=== PATIENT | female | born 1995 | race Two or more races ===

== ENCOUNTER 2018-01-25 09:52 | Emergency (ER) | payer SELFPAY ==
[2018-01-25 11:03] LABS: BILIRUBIN,URINE NEGATIVE (NEG); CLARITY,URINE CLOUDY; COLOR,URINE YELLOW; GLUCOSE,URINE NEGATIVE (NEG); NITRITE,URINE NEGATIVE (NEG); PH,URINE 6.5; PROTEIN,URINE NEGATIVE (NEG-TRACE)
[2018-01-25 11:10] LABS: BACTERIA,URINE FEW /HPF (0-FEW); RBC,URINE RARE /HPF (0-2); SQUAMOUS EPITHELIAL CELL,UR MANY /LPF
[2018-01-25 12:31] LABS: ADD MAN DIFF? NO
[2018-01-25 12:33] LABS: BASO % 1 % (0-3); EOS # 0.1 x10^3/uL (0.0-0.7); EOS % 1 % (0-3); HEMATOCRIT 37.5 % (36.0-47.0); HEMOGLOBIN 12.6 g/dL (12.0-15.5); LYMPH # 2.5 x10^3/uL (1.0-4.8); LYMPH % 25 % (24-48); MEAN CORPUSCULAR HEMOGLOBIN 29 pg (25-35); MEAN CORPUSCULAR HGB CONC 34 g/dL (31-37); MEAN CORPUSCULAR VOLUME 85 fL (79-100); MONO # 0.6 x10^3/uL (0.0-1.1); MONO % 6 % (0-9); NEUT # 6.6 x10^3uL (1.8-7.7); NEUT % 67 % (31-73); PLATELET COUNT 248 x10^3/uL (140-400); RED BLOOD COUNT 4.39 x10^6/uL (3.50-5.40); RED CELL DISTRIBUTION WIDTH 16.2 % (11.5-14.5); WHITE BLOOD COUNT 9.8 x10^3/uL (4.0-11.0)
[2018-01-25 12:54] LABS: ANION GAP 6 (6-14); BLOOD UREA NITROGEN 9 mg/dL (7-20); BUN/CREATININE RATIO 18 (6-20); CALCIUM 8.7 mg/dL (8.5-10.1); CARBON DIOXIDE 26 mmol/L (21-32); CHLORIDE 105 mmol/L (98-107); CREATININE 0.5 mg/dL (0.6-1.0); GFR 152.9; GLUCOSE 86 mg/dL (70-99); SODIUM 137 mmol/L (136-145)
[2018-01-25 12:57] LABS: INFLUENZA A PATIENT NEGATIVE (NEGATIVE); INFLUENZA B PATIENT NEGATIVE (NEGATIVE); OBC FLU VALID
[2018-01-25 13:04] LABS: ALBUMIN/GLOBULIN RATIO 0.8 (1.0-1.7); ALK PHOS 60 U/L (46-116); ALT (SGPT) 24 U/L (14-59); AST (SGOT) 15 U/L (15-37); LIPASE 112 U/L (73-393); TOTAL BILIRUBIN 0.5 mg/dL (0.2-1.0)
[2018-01-26 06:44] LABS: NEGATIVE OBC STREP NEG; POSITIVE OBC STREP POS
[2018-01-26 14:23] LABS: CHLAMYDIA PROBE Negative (Negative); GC PROBE Negative (Negative)
== END 2018-01-25 13:04 | disposition home or self-care (01) ==
LOC: ER 09:52
DX: O99.512 Diseases of the respiratory system complicating pregnancy, second trimester (principal); J06.9 Acute upper respiratory infection, unspecified; O23.42 Unspecified infection of urinary tract in pregnancy, second trimester; N76.0 Acute vaginitis; B96.89 Other specified bacterial agents as the cause of diseases classified elsewhere; Z3A.20 20 weeks gestation of pregnancy
CPT/HCPCS: 36415; 76805; 80053; 81001; 83690; 84702; 85025; 87070; 87086; 87491; 87591; 87804; 87804-59; 87880; 99285-25; Q0111

== ENCOUNTER 2018-06-28 23:00 | Inpatient (IN) | payer SELFPAY ==
[~2018-06-28] VITALS: Ht 154.9 cm; Wt 72.6 kg
[~2018-06-28 23:00] MED LIST: ACET-704 PO; CEPH500T PO; IBUP-1060 PO; METR500T PO
[2018-06-29 02:22] VITALS: BP 105/62
[2018-06-29] MEDS ORDERED: IBUPROFEN 800 MG TABLET. PO PRN (02:30)
[2018-06-29] MEDS ORDERED: OXYTOCIN 30 UNIT/500 ML PREMIX 500 ML IV PRN ×3 (02:30→17:15)
[2018-06-29] MEDS ORDERED: PENICILLIN G K 5,000,000 UNIT in IV DEXTROSE 5% 100ML 100 ML IV ONE (02:30)
[2018-06-29] MEDS ORDERED: 0.9 % SODIUM CHLORIDE 10 ML DISP.SYRIN. IV PRN ×2 (02:30→17:15)
[2018-06-29] MEDS ORDERED: LIDOCAINE 1% PF 30 ML VIAL. INJ PRN (02:30)
[2018-06-29] MEDS ORDERED: TERBUTALINE 1 MG/ML VIAL. SQ PRN (02:30)
[2018-06-29] MEDS ORDERED: ACETAMINOPHEN 325 MG TABLET. PO PRN ×2 (02:30→17:15)
[2018-06-29] MEDS ORDERED: ONDANSETRON PF 4 MG/2 ML VIAL. IV PRN (02:30)
[2018-06-29] MEDS ORDERED: MAG HYDROX/ALUMINUM HYD/SIMETH 30 ML ORAL.SUSP PO PRN ×2 (02:30→17:15)
[2018-06-29] MEDS ORDERED: fentaNYL PF VIAL 100 MCG/2 ML VIAL IV PRN (02:30)
[2018-06-29] MEDS: IV RINGERS,LACTATED 1000ML 1,000 ML IV SCH ×3 (04:34→18:16)
[2018-06-29 05:00] LABS: BASO % 0 % (0-3); EOS # 0.1 x10^3/uL (0.0-0.7); EOS % 1 % (0-3); HEMATOCRIT 34.5 % (36.0-47.0); HEMOGLOBIN 11.7 g/dL (12.0-15.5); LYMPH # 3.8 x10^3/uL (1.0-4.8); LYMPH % 39 % (24-48); MEAN CORPUSCULAR HEMOGLOBIN 29 pg (25-35); MEAN CORPUSCULAR HGB CONC 34 g/dL (31-37); MEAN CORPUSCULAR VOLUME 85 fL (79-100); MONO # 0.6 x10^3/uL (0.0-1.1); MONO % 7 % (0-9); NEUT # 5.1 x10^3uL (1.8-7.7); NEUT % 53 % (31-73); PLATELET COUNT 210 x10^3/uL (140-400); RED BLOOD COUNT 4.08 x10^6/uL (3.50-5.40); RED CELL DISTRIBUTION WIDTH 14.8 % (11.5-14.5); WHITE BLOOD COUNT 9.7 x10^3/uL (4.0-11.0)
[2018-06-29 05:31] LABS: % EOS 1 % (0-5); % LYMPHS 42 % (24-48); % MONOS 2 % (0-10); % SEGS 55 % (35-66); PLT ESTIMATE ADEQUATE (ADEQUATE)
[2018-06-29 07:26] VITALS: BP 79/46
--- NOTE | 2018-06-29 08:22 | PDOC1 ---
OB - History Hx of Present Care: Good Care Ultrasounds: Normal mid trimester US Obstetrical Complications: None Medical Complications: None Past Family/Social History * Past Medical, Surgical, Family and Obstetric Histories reviewed from chart. Rubella: Immune RPR/VDRL: Negative GBS Status: Positive HBsAG: Negative OB - Chief Complaint & HPI Date of Admission: Date of Admission: Jun 28, 2018 at 23:00 Chief Complaint/History : 3 Para: 2 EGA: 40 Reason for admission: active labor Admission Nurse Assessment Rev: Yes OB - Admission Exam Physical Exam Vitals: VS - Last 72 Hours, by Label Date Time Temp Pulse Resp B/P (MAP) Pulse Ox O2 Delivery O2 Flow Rate FiO2 06/29/18 07:26 98.9 59 16 79/46 (57) Room Air 98.9 06/29/18 02:22 98.2 71 18 105/62 (76) Room Air 98.2 HEENT: Normal Heart: Regular Rate Lungs: Clear, Equal Abdomen: Gravid, Non tender, Soft Extremities: Edema Reflexes: Normal Cervical Dilatation: 1cm Effacement: 75% Station: -3 Membranes: Intact Heart Rate: Normal Accelerations: Accelerations Present Decelerations: No decelerations Continuous 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 Start Pen G prophylaxis. WALTER AGUIAR Jr, MD Jun 29, 2018 08:22
[2018-06-29] MEDS: PENICILLIN G K 2,500,000 UNIT in IV DEXTROSE 5% 50 ML IV SCH ×2 (08:39→12:21)
[2018-06-29] MEDS: BUTORPHANOL 2 MG/ML VIAL. IV PRN ×2 (14:44→17:00)
[2018-06-29] MEDS ORDERED: METHYLERGONOVINE MALEATE 0.2 MG/ML VIAL. IM ONE (16:15)
[2018-06-29] MEDS ORDERED: miSOPROStol 200MCG TAB 200 MCG TABLET PR ONE (16:15)
[2018-06-29] MEDS ORDERED: CARBOPROST TROMETHAMINE 250 MCG/ML AMPUL IM ONE (16:15)
--- NOTE | 2018-06-29 17:04 | PDOC ---
VAGINAL DELIVERY DATE DATE: 06/29/18 TIME: 17:02 : 3 Para: 2 EGA: 40 VAGINAL DELIVERY: VTX VACCUM ASSISTED: No PLACENTA: Spontaneous 8/9 SEX: Male WEIGHT Weight [ 6 lbs. 11 oz] Nuchal Cord: No Amniotic Fluid: Clear PAIN: Natural EPISIOTOMY: No EXTENSION: No EBL 400 ml COMPLICATIONS retained placental products CONDITION stable Signs of Intrauterine Infectio: None Shoulder Dystocia: No WALTER AGUIAR Jr, MD Jun 29, 2018 17:04
[2018-06-29] MEDS ORDERED: ZOLPIDEM 5 MG TABLET. PO PRN (17:15)
[2018-06-29] MEDS ORDERED: MMR per PROTOCOL. MC PRN (17:15)
[2018-06-29] MEDS ORDERED: DOCUSATE SODIUM 100 MG CAPSULE. PO PRN (17:15)
[2018-06-29] MEDS ORDERED: SIMETHICONE 80 MG TAB.CHEW PO PRN (17:15)
[2018-06-29] MEDS ORDERED: PHENYLEPH/MINERAL OIL/PETROLAT RECTAL OINTMENT 28GM TUBE. RC PRN (17:15)
[2018-06-29] MEDS ORDERED: HYDROCORTISONE 1% TOPICAL OINTMENT 30GM TUBE. TP PRN (17:15)
[2018-06-29] MEDS ORDERED: MAGNESIUM HYDROXIDE 2,400 MG/30 ML ORAL.SUSP. PO PRN (17:15)
[2018-06-29] MEDS ORDERED: BENZOCAINE 20% TOPICAL AEROSOL SPRAY 57GM CAN. TP PRN (17:15)
[2018-06-29] MEDS ORDERED: diphenhydrAMINE HCL 25 MG CAPSULE PO PRN (17:15)
[2018-06-29] MEDS: AMPICILLIN/SULBACTAM 1.5 GM in IV NORMAL SALINE 50ML 50 ML IV SCH (18:19)
[2018-06-29] MEDS: IBUPROFEN 800 MG TABLET. PO PRN (19:30)
[2018-06-29 20:15] VITALS: BP 84/56
[2018-06-29 21:11] VITALS: BP 89/55
[2018-06-29] MEDS: oxyCODONE/APAP 5/325 1 TAB TABLET PO PRN (22:17)
[2018-06-30] MEDS: AMPICILLIN/SULBACTAM 1.5 GM in IV NORMAL SALINE 50ML 50 ML IV SCH ×3 (00:36→11:53)
[2018-06-30 00:53] VITALS: BP 84/53
[2018-06-30] MEDS: IV RINGERS,LACTATED 1000ML 1,000 ML IV SCH ×3 (02:16→18:16)
[2018-06-30 05:50] VITALS: BP 92/56
[2018-06-30] MEDS: IBUPROFEN 800 MG TABLET. PO PRN ×2 (06:20→19:56)
[2018-06-30] MEDS: FERROUS SULFATE 325 MG TABLET. PO SCH ×2 (07:55→09:54)
--- NOTE | 2018-06-30 08:12 | PDOC ---
OB Progress Note Date of Service 06/30/18 Time of Evaluation 0810 Notes Pt. feeling well. No complaints. Lab Laboratory Tests Test 06/29/18 04:47 White Blood Count 9.7 x10^3/uL (4.0-11.0) Red Blood Count 4.08 x10^6/uL (3.50-5.40) Hemoglobin 11.7 g/dL (12.0-15.5) Hematocrit 34.5 % (36.0-47.0) Mean Corpuscular Volume 85 fL (79-100) Mean Corpuscular Hemoglobin 29 pg (25-35) Mean Corpuscular Hemoglobin Concent 34 g/dL (31-37) Red Cell Distribution Width 14.8 % (11.5-14.5) Platelet Count 210 x10^3/uL (140-400) Neutrophils (%) (Auto) 53 % (31-73) Lymphocytes (%) (Auto) 39 % (24-48) Monocytes (%) (Auto) 7 % (0-9) Eosinophils (%) (Auto) 1 % (0-3) Basophils (%) (Auto) 0 % (0-3) Neutrophils # (Auto) 5.1 x10^3uL (1.8-7.7) Lymphocytes # (Auto) 3.8 x10^3/uL (1.0-4.8) Monocytes # (Auto) 0.6 x10^3/uL (0.0-1.1) Eosinophils # (Auto) 0.1 x10^3/uL (0.0-0.7) Basophils # (Auto) 0.0 x10^3/uL (0.0-0.2) Segmented Neutrophils % 55 % (35-66) Lymphocytes % 42 % (24-48) Monocytes % 2 % (0-10) Eosinophils % 1 % (0-5) Platelet Estimate Adequate (ADEQUATE) Treponema pallidum Antibody Nonreactive (Nonreactive) Medications Current Medications Sodium Chloride (Normal Saline Flush) 3 ml QSHIFT PRN IV AFTER MEDS AND BLOOD DRAWS; Start 06/29/18 at 02:30 Ringer's Solution 1,000 ml @ 125 mls/hr Q8H IV Last administered on 06/29/18at 11:50; Start 06/29/18 at 02:16 Butorphanol Tartrate (Stadol) 2 mg PRN Q1HR PRN IV Severe labor pain Last administered on 06/29/18at 17:00; Start 06/29/18 at 02:30 Fentanyl Citrate (Fentanyl 2ml Vial) 100 mcg PRN Q20MIN PRN IV Labor pain; Start 06/29/18 at 02:30 Acetaminophen (Tylenol) 650 mg PRN Q6HRS PRN PO MILD PAIN / TEMP; Start at 02:30 Ondansetron HCl (Zofran) 4 mg PRN Q4HRS PRN IV NAUSEA/VOMITING; Start 06/29/18 at 02:30 Al Hydroxide/Mg Hydroxide (Mylanta Plus Xs) 30 ml PRN Q4HRS PRN PO HEARTBURN / GAS; Start 06/29/18 at 02:30 Terbutaline Sulfate (Brethine) 0.25 mg 1X PRN PRN SQ SEE COMMENTS; Start at 02:30; Stop 06/30/18 at 02:29; Status DC Lidocaine HCl (Xylocaine 1% Pf 30ml Vial) 30 ml 1X PRN PRN INJ SEE COMMENTS; Start 06/29/18 at 02:30; Stop 07/01/18 at 02:29 Oxytocin/Sodium Chloride 500 ml @ 0 mls/hr CONT PRN IV SEE I/O RECORD Last administered on 06/29/18at 08:47; Start 06/29/18 at 02:30 Oxytocin/Sodium Chloride 500 ml @ 0 mls/hr CONT PRN PRN IV Post delivery bleeding; Start 06/29/18 at 02:30 Ibuprofen (Motrin) 800 mg PRN Q6HRS PRN PO MODERATE PAIN; Start 06/29/18 at 02: 30; Stop 06/29/18 at 17:32; Status DC Penicillin G Potassium [id number] unit/Dextrose 100 ml @ 100 mls/hr 1X ONCE IV Last administered on 06/29/18at 04:35; Start 06/29/18 at 02:30; Stop 06/29/18 at 03:29; Status DC Penicillin G Potassium [id number] unit/Dextrose 50 ml @ 100 mls/hr Q4H IV Last administered on 06/29/18at 12:21; Start 06/29/18 at 06:30; Stop 06/29/18 at 17:17 ; Status DC Misoprostol (Cytotec 200mcg Tab) 800 mcg 1X ONCE DC Last administered on at 16:59; Start 06/29/18 at 16:15; Stop 06/29/18 at 16:16; Status DC Methylergonovine Maleate (Methergine) 0.2 mg 1X ONCE IM ; Start 06/29/18 at 16: 15; Stop 06/29/18 at 16:16; Status DC Carboprost Tromethamine (Hemabate) 250 mcg 1X ONCE IM ; Start 06/29/18 at 16:15 ; Stop 06/29/18 at 16:16; Status DC Sodium Chloride (Normal Saline Flush) 10 ml QSHIFT PRN IV AFTER MEDS AND BLOOD DRAWS; Start 06/29/18 at 17:15 Oxytocin/Sodium Chloride 500 ml @ 62.5 mls/hr CONT PRN IV SEE I/O RECORD; Start 06/29/18 at 17:15; Stop 06/30/18 at 01:14; Status DC Acetaminophen (Tylenol) 650 mg PRN Q6HRS PRN PO MILD PAIN / TEMP; Start at 17:15 Ibuprofen (Motrin) 800 mg PRN Q8HRS PRN PO INFLAMMATION/PAIN PREVENTION Last administered on 06/30/18at 06:20; Start 06/29/18 at 17:15 Docusate Sodium (Colace) 100 mg PRN BID PRN PO CONSTIPATION SEE COMMENTS; Start 06/29/18 at 17:15 Magnesium Hydroxide (Milk Of Magnesia) 2,400 mg PRN DAILY PRN PO CONSTIPATION 2ND CHOICE; Start 06/29/18 at 17:15 Al Hydroxide/Mg Hydroxide (Mylanta Plus Xs) 30 ml PRN Q4HRS PRN PO HEARTBURN / GAS; Start 06/29/18 at 17:15 Simethicone (Gas-X) 80 mg PRN AFTMEALHC PRN PO GAS / BLOATING; Start 06/29/18 at 17:15 Diphenhydramine HCl (Benadryl) 25 mg PRN Q6HRS PRN PO ITCHING; Start 06/29/18 at 17:15 Benzocaine (Americaine) 1 spray PRN QID PRN TP TOPICAL PAIN; Start 06/29/18 at 17:15 Phenyleph/Shark Oil/Min Oil/Petrol (Preparation H) 1 john PRN QID PRN RC RECTAL PAIN; Start 06/29/18 at 17:15 Hydrocortisone (Cortaid) 1 john PRN QID PRN TP PERINEAL PAIN; Start 06/29/18 at 17:15 Ferrous Sulfate (Feosol) 325 mg BIDWMEALS PO ; Start 06/30/18 at 08:00 Zolpidem Tartrate (Ambien) 5 mg PRN QHS PRN PO INSOMNIA, MAY REPEAT X1; Start 06/29/18 at 17:15 Info (Do NOT chart on this placeholder) 1 ea 1X PRN PRN MC SEE COMMENTS; Start 06/29/18 at 17:15 Info (Do NOT chart on this placeholder) 1 ea 1X PRN PRN MC SEE COMMENTS; Start 06/29/18 at 17:15 Oxycodone/ Acetaminophen (Percocet 5/325) 2 tab PRN Q4HRS PRN PO MODERATE PAIN , SEVERE PAIN Last administered on 06/29/18at 22:17; Start 06/29/18 at 17:15 Ampicillin Sodium/ Sulbactam Sodium 1.5 gm/Sodium Chloride 50 ml @ 100 mls/hr Q6HRS IV Last administered on 06/30/18at 06:14; Start 06/29/18 at 18:00 Active Scripts Active Cephalexin 500 Mg Tablet 1 Tab PO BID Flagyl (Metronidazole) 500 Mg Tablet 1 Tab PO BID Tylenol With Codeine #3 Tablet (Acetaminophen/Codeine Phosphate) 1 Each Tablet 1 Each PO Q4H PRN Ibuprofen 800 Mg Tablet 800 Mg PO Q6H PRN Exam Abd: soft, non tender, fundus firm Assessment PPD#1 s/p Plan of Care: Continue current Tx, Mgmt WALTER AGUIAR Jr, MD Jun 30, 2018 08:12
[2018-06-30 08:16] LABS: BASO % 0 % (0-3); EOS # 0.1 x10^3/uL (0.0-0.7); EOS % 1 % (0-3); HEMATOCRIT 34.6 % (36.0-47.0); HEMOGLOBIN 11.7 g/dL (12.0-15.5); LYMPH # 3.7 x10^3/uL (1.0-4.8); LYMPH % 25 % (24-48); MEAN CORPUSCULAR HEMOGLOBIN 29 pg (25-35); MEAN CORPUSCULAR HGB CONC 34 g/dL (31-37); MEAN CORPUSCULAR VOLUME 85 fL (79-100); MONO % 7 % (0-9); NEUT # 10.1 x10^3uL (1.8-7.7); NEUT % 68 % (31-73); PLATELET COUNT 201 x10^3/uL (140-400); RED BLOOD COUNT 4.09 x10^6/uL (3.50-5.40); RED CELL DISTRIBUTION WIDTH 15.2 % (11.5-14.5); WHITE BLOOD COUNT 14.9 x10^3/uL (4.0-11.0)
[2018-06-30 09:58] VITALS: BP 80/50
[2018-06-30 11:07] VITALS: BP 85/60
[2018-06-30] MEDS: oxyCODONE/APAP 5/325 1 TAB TABLET PO PRN (11:59)
[2018-06-30 15:16] VITALS: BP 91/53
[2018-06-30 23:32] VITALS: BP 89/53
[2018-07-01 06:16] VITALS: BP 102/57
[2018-07-01] MEDS: FERROUS SULFATE 325 MG TABLET. PO SCH (09:36)
[2018-07-01] MEDS: IBUPROFEN 800 MG TABLET. PO PRN (09:36)
[2018-07-01 10:20] VITALS: BP 101/54
--- NOTE | 2018-07-01 10:36 | PDOC3 ---
OB DISCHARGE SUMMARY DATE OF ADMISSION: 06/29/18 DATE OF DISCHARGE: 06/29/18 REASON FOR ADMISSION: Onset of labor INTRAPARTUM PROCEDURES: Spontanous Vag Deliv PROCEDURES: None OPERATIONS: None DISCHARGE DIAGNOSIS: Term Delivered DISCHARGE INFORMATION: Activity (as tolerated), Diet (regular), Instructions ( pelvic rest x 6 wks), Discharge to (home; f/u in 6 wks) HOSPITAL COURSE term gestation delivered without complications. WALTER AGUIAR Jr, MD Jul 01, 2018 10:36
--- NOTE | 2018-07-01 10:37 | DISCH ---
DISCHARGE INSTRUCTIONS Condition on Discharge Condition on Discharge: Stable Activity After Discharge Activity Instructions for Disc: Activity as tolerated Lifting Instructions after Dis: No heavy lifting Exercise Instruction after Dis: Progress as tolerated Driving Instructions after Dis: Do not drive today Diet after Discharge Diet after Discharge: Regular Diet Texture: Regular Wound Incision Care Wound/Incision Care: No wound care needed Checks after Discharge Checks after discharge: Check your Temp as needed Contacting the DR. after DC Call your doctor for: If your condition worsens Follow-Up Follow up with: Linda in 6 wks. Treatment/Equipment after DC Adaptive Equipment Issued: None WALTER AGUIAR Jr, MD Jul 01, 2018 10:37
[2018-07-01] MEDS ORDERED: IBUP-1060 PO (10:38)
[2018-07-01 16:45] VITALS: BP 99/52
== END 2018-07-01 18:00 | disposition home or self-care (01) | DRG 775 ==
LOC: 3 SO LND 23:00 → OBSVTOIN 23:00 → INTOOBSV 23:00 → 3 NORTH 06-29 20:05
PROVIDERS: ADMIT Obstetrics & Gynecology; ATTEND Obstetrics & Gynecology
PROC: 10E0XZZ Delivery of Products of Conception, External Approach (ICD-10-PCS; principal; 2018-06-29)
DX: O99.824 Streptococcus B carrier state complicating childbirth (principal); Z37.0 Single live birth; Z3A.40 40 weeks gestation of pregnancy
CPT/HCPCS: 36415; 85007; 85025; 86592; 86850; 86900; 86901; G0378; J0295; J2540; J2590; J7120

== ENCOUNTER 2018-07-15 18:58 | Inpatient (IN) | payer SELFPAY ==
[~2018-07-15] VITALS: Ht 162.6 cm; Wt 68.0 kg
[2018-07-15 19:44] LABS: BASO # 0.1 x10^3/uL (0.0-0.2); BASO % 1 % (0-3); EOS # 0.2 x10^3/uL (0.0-0.7); EOS % 2 % (0-3); HEMATOCRIT 40.3 % (36.0-47.0); HEMOGLOBIN 13.6 g/dL (12.0-15.5); LYMPH # 4.4 x10^3/uL (1.0-4.8); LYMPH % 39 % (24-48); MEAN CORPUSCULAR HEMOGLOBIN 28 pg (25-35); MEAN CORPUSCULAR HGB CONC 34 g/dL (31-37); MEAN CORPUSCULAR VOLUME 84 fL (79-100); MONO # 0.7 x10^3/uL (0.0-1.1); MONO % 6 % (0-9); NEUT % 53 % (31-73); PLATELET COUNT 346 x10^3/uL (140-400); RED BLOOD COUNT 4.79 x10^6/uL (3.50-5.40); RED CELL DISTRIBUTION WIDTH 14.6 % (11.5-14.5); WHITE BLOOD COUNT 11.4 x10^3/uL (4.0-11.0)
[2018-07-15 19:48] LABS: BILIRUBIN,URINE NEGATIVE (NEG); CLARITY,URINE CLOUDY; NITRITE,URINE NEGATIVE (NEG); PROTEIN,URINE 30 mg/dL (NEG-TRACE); UROBILINOGEN,URINE 0.2 mg/dL (0.2 mg/dL)
[2018-07-15 19:56] LABS: CALCIUM 8.9 mg/dL (8.5-10.1); CREATININE 0.8 mg/dL (0.6-1.0); GFR 88.9; POTASSIUM 4.1 mmol/L (3.5-5.1)
[2018-07-15 20:06] LABS: BACTERIA,URINE FEW /HPF (0-FEW); COLOR,URINE RED; RBC,URINE TNTC /HPF (0-2); SQUAMOUS EPITHELIAL CELL,UR FEW /LPF
--- NOTE | 2018-07-15 21:16 | PHYS DOC ---
Past Medical History Past Medical History: Other Additional Past Medical Histor: MASTITIS Past Surgical History: No Surgical History Alcohol Use: None Drug Use: None Adult General Chief Complaint Chief Complaint: VAGINAL BLEEDING HPI HPI Patient is a 22 year old female who presents with having a baby vaginally on June 29. At [facility]. Patient states today when she went to the restroom she noticed a chunk of tissue that she passed. Patient states it did not look like a blood clot but this like tissue. Patient states she has lower abdominal pressure the front and lower back. Patient rates this pressure a 5 out of 10. Patient states that she did have burning with urination today. Patient states she is breast-feeding. She denies chest pain or shortness of air. Patient denies any dizziness or abdominal cramping. Patient denies fever and she is afebrile in the ED today. Patient has no known drug allergies, no history, no surgeries, and she is only taking vitamins. Review of Systems Review of Systems Constitutional: Denies fever or chills [] Eyes: Denies change in visual acuity, redness, or eye pain [] HENT: Denies nasal congestion or sore throat [] Respiratory: Denies cough or shortness of breath [] Cardiovascular: No additional information not addressed in HPI [] GI: Denies abdominal pain, nausea, vomiting, bloody stools or diarrhea [] : Denies dysuria or hematuria [] Musculoskeletal: Denies back pain or joint pain [] Integument: Denies rash or skin lesions [] Neurologic: Denies headache, focal weakness or sensory changes [] Endocrine: Denies polyuria or polydipsia [] All other systems were reviewed and found to be within normal limits, except as documented in this note. Allergies Allergies Allergies Coded Allergies Type Severity Reaction Last Updated Verified No Known Drug Allergies 11/30/14 No Physical Exam Physical Exam Constitutional: Well developed, well nourished, no acute distress, non-toxic appearance. [] HENT: Normocephalic, atraumatic, bilateral external ears normal, oropharynx moist, no oral exudates, nose normal. [] Eyes: PERRLA, EOMI, conjunctiva normal, no discharge. [] Neck: Normal range of motion, no tenderness, supple, no stridor. [] Cardiovascular:Heart rate regular rhythm, no murmur [] Lungs & Thorax: Bilateral breath sounds clear to auscultation [] Abdomen: Bowel sounds normal, soft, no tenderness, no masses, no pulsatile masses. [] Skin: Warm, dry, no erythema, no rash. [] Back: No tenderness, no CVA tenderness. [] Extremities: No tenderness, no cyanosis, no clubbing, ROM intact, no edema. [] Neurologic: Alert and oriented X 3, normal motor function, normal sensory function, no focal deficits noted. [] Psychologic: Affect normal, judgement normal, mood normal. [] Current Patient Data Vital Signs Vital Signs Date Time Temp Pulse Resp B/P (MAP) Pulse Ox O2 Delivery O2 Flow Rate FiO2 07/15/18 23:30 56 20 103/62 (76) 98 Room Air 07/15/18 19:21 98.3 98.3 Lab Values Laboratory Tests Test 07/15/18 19:30 07/15/18 19:35 Urine Collection Type Clean catch Urine Color Red Urine Clarity Cloudy Urine pH 7.0 Urine Specific [place] 1.015 Urine Protein 30 mg/dL (NEG-TRACE) Urine Glucose (UA) Negative mg/dL (NEG) Urine Ketones (Stick) Negative mg/dL (NEG) Urine Blood Large (NEG) Urine Nitrite Negative (NEG) Urine Bilirubin Negative (NEG) Urine Urobilinogen Dipstick 0.2 mg/dL (0.2 mg/dL) Urine Leukocyte Esterase Large (NEG) Urine RBC Tntc /HPF (0-2) Urine WBC 1-4 /HPF (0-4) Urine Squamous Epithelial Cells Few /LPF Urine Bacteria Few /HPF (0-FEW) Urine Mucus Slight /LPF White Blood Count 11.4 x10^3/uL (4.0-11.0) H Red Blood Count 4.79 x10^6/uL (3.50-5.40) Hemoglobin 13.6 g/dL (12.0-15.5) Hematocrit 40.3 % (36.0-47.0) Mean Corpuscular Volume 84 fL (79-100) Mean Corpuscular Hemoglobin 28 pg (25-35) Mean Corpuscular Hemoglobin Concent 34 g/dL (31-37) Red Cell Distribution Width 14.6 % (11.5-14.5) H Platelet Count 346 x10^3/uL (140-400) Neutrophils (%) (Auto) 53 % (31-73) Lymphocytes (%) (Auto) 39 % (24-48) Monocytes (%) (Auto) 6 % (0-9) Eosinophils (%) (Auto) 2 % (0-3) Basophils (%) (Auto) 1 % (0-3) Neutrophils # (Auto) 6.0 x10^3uL (1.8-7.7) Lymphocytes # (Auto) 4.4 x10^3/uL (1.0-4.8) Monocytes # (Auto) 0.7 x10^3/uL (0.0-1.1) Eosinophils # (Auto) 0.2 x10^3/uL (0.0-0.7) Basophils # (Auto) 0.1 x10^3/uL (0.0-0.2) Sodium Level 140 mmol/L (136-145) Potassium Level 4.1 mmol/L (3.5-5.1) Chloride Level 104 mmol/L (98-107) Carbon Dioxide Level 26 mmol/L (21-32) Anion Gap 10 (6-14) Blood Urea Nitrogen 14 mg/dL (7-20) Creatinine 0.8 mg/dL (0.6-1.0) Estimated GFR (Cockcroft-Gault) 88.9 Glucose Level 92 mg/dL (70-99) Calcium Level 8.9 mg/dL (8.5-10.1) Laboratory Tests 07/15/18 19:35 Laboratory Tests 07/15/18 19:35 EKG EKG [] Radiology/Procedures Radiology/Procedures Pelvic ultrasound Impressions: [facility] [address] [place] [address] IMAGING REPORT Signed PATIENT: EVY NAVARRO ACCOUNT: [id number] : 1995 LOCATION: ER AGE: 22 SEX: F EXAM STATUS: REG ER ORD. PHYSICIAN: CLEMENTE WRAY APRN REASON: Post jun 29. Looking for retained products of conception. PROCEDURE: PELVIS ULTRASOUND Indication:PASSING TISSUE POST - PT STATES IT LOOKED LIKE A PIECE OF PLACENTA
VAG 06/27/18 TECHNIQUE: Grayscale, color Doppler and spectral waveform images of the pelvis obtained. COMPARISON: None FINDINGS: The uterus is anteverted and measures 11.2 x 10.3 x 5.5 m. Endometrium is thickened measuring 1.5 cm with heterogenous appearance and internal vascularity. No free pelvic fluid. The right ovary measures 4.0 x 2.0 x 1.5 cm and demonstrates evidence of blood flow. The left ovary measures 2.8 x 2.0 x 1.3 cm and demonstrates evidence of blood flow. IMPRESSION: Heterogenous and thickened endometrium with minimal internal vascularity concerning for retained products of conception. Electronically signed by: Dylan Cesar DO (07/15/2018 11:30 PM) [facility] DICTATED and SIGNED BY: DYLAN CESAR DO DATE: 07/15/183 Course & Med Decision Making Course & Med Decision Making Patient is a 22 year old female who presents with having a baby vaginally on June 29. At [facility]. Patient states today when she went to the restroom she noticed a chunk of tissue that she passed. Patient states it did not look like a blood clot but this like tissue. Patient states she has lower abdominal pressure the front and lower back. Patient rates this pressure a 5 out of 10. Patient states that she did have burning with urination today. Patient states she is breast-feeding. She denies chest pain or shortness of air. Patient denies any earache, dizziness or abdominal cramping. Patient denies fever and she is afebrile in the ED today. Patient has no known drug allergies, no history, no surgeries, and she is only taking vitamins. Upon examination patient has some tenderness to the lower abdomen bilaterally. Patient is neurologically intact at steady on her feet. She states she is still bleeding vaginally since having the baby. Patient denies any nausea, vomiting, diarrhea. Patient has no extremity edema. Patients US shows retained products of conception. Patient states she last drank 4 hours ago and last ate at noon. Patient states Dr Huffman delivered her baby. I have spoken to Alexus who stated to admit the patient to the floor and Dr Huffman will come see the patient in the morning. Patient is agreeable with this discharge plan. Staff Physician Addendum: I was working in the ER during the course of this patient's visit. I was available for consultation as needed, but I was not directly involved in the care of this patient. [] Dragon Disclaimer Dragon Disclaimer This electronic medical record was generated, in whole or in part, using a voice recognition dictation system. Departure Departure Impression: Primary Impression: Products of conception, retention Disposition: ADMITTED INPATIENT Admitting Physician: Other Condition: STABLE Referrals: NO PCP (PCP) CLEMENTE WRAY APRN Jul 15, 2018 21:16 DAINA ARANDA MD Jul 16, 2018 04:57
--- NOTE | 2018-07-15 23:34 | RAD ---
Indication:PASSING TISSUE POST - PT STATES IT LOOKED LIKE A PIECE OF PLACENTA
VAG 06/27/18 TECHNIQUE: Grayscale, color Doppler and spectral waveform images of the pelvis obtained. COMPARISON: None FINDINGS: The uterus is anteverted and measures 11.2 x 10.3 x 5.5 m. Endometrium is thickened measuring 1.5 cm with heterogenous appearance and internal vascularity. No free pelvic fluid. The right ovary measures 4.0 x 2.0 x 1.5 cm and demonstrates evidence of blood flow. The left ovary measures 2.8 x 2.0 x 1.3 cm and demonstrates evidence of blood flow. IMPRESSION: Heterogenous and thickened endometrium with minimal internal vascularity concerning for retained products of conception. Electronically signed by: Dylan Cesar DO (07/15/2018 11:30 PM) [facility]
[2018-07-16] VITALS (8 sets, daily range): BP systolic 87–99; BP diastolic 45–73
[2018-07-16] MEDS ORDERED: IV NORMAL SALINE 1000ML BAG 1,000 ML IV SCH
[2018-07-16] MEDS ORDERED: fentaNYL PF VIAL 100 MCG/2 ML VIAL IV PRN
[2018-07-16] MEDS ORDERED: ONDANSETRON PF 4 MG/2 ML VIAL. IV PRN
[2018-07-16] MEDS ORDERED: IV NORMAL SALINE 1000ML BAG 1,000 ML IV PRN (01:30)
--- NOTE | 2018-07-16 08:16 | PDOC1 ---
History and Physical Date of Admission Date of Admission DATE: 07/16/18 TIME: 08:10 Identification/Chief Complaint Chief Complaint vaginal bleeding Source Source: Patient History of Present Illness History of Present Illness Pt. delivered vaginally 2 wks ago. She reports passing large blood clots with tissue yesterday. SHe presented to ED for evaluation. Pelvic sono indicated possible retained POC. She has light vaginal bleeding this am. SHe was counseled on need for suction D&C. Past Surgical History Past Surgical History: No pertinent history Current Problem List Problem List Problems Medical Problems: (1) Products of conception, retention Status: Acute Current Medications Current Medications Current Medications Ondansetron HCl (Zofran) 4 mg PRN Q8HRS PRN IV NAUSEA/VOMITING 1ST CHOICE; Start 07/16/18 at 00:00; Stop 07/16/18 at 23:59 Fentanyl Citrate (Fentanyl 2ml Vial) 50 mcg PRN Q2HR PRN IV SEVERE PAIN; Start 07/16/18 at 00:00; Stop 07/16/18 at 23:59 Sodium Chloride 1,000 ml @ 75 mls/hr [id number] IV Last administered on at 01:09; Start 07/16/18 at 00:00; Stop 07/16/18 at 00:01; Status DC Sodium Chloride 1,000 ml @ 75 mls/hr PRN DAILY PRN IV IF UNABLE TO TAKE PO; Start 07/16/18 at 01:30 Active Scripts Active Ibuprofen 800 Mg Tablet 800 Mg PO Q6H PRN Cephalexin 500 Mg Tablet 1 Tab PO BID Flagyl (Metronidazole) 500 Mg Tablet 1 Tab PO BID Tylenol With Codeine #3 Tablet (Acetaminophen/Codeine Phosphate) 1 Each Tablet 1 Each PO Q4H PRN Allergies Allergies: Coded Allergies: No Known Drug Allergies (Unverified , 11/30/14) ROS General: YES: Fatigue; No: Chills, Night Sweats, Malaise, Appetite, Other PSYCHOLOGICAL ROS: YES: Anxiety; No: Behavioral Disorder, Concentration difficultie, Decreased libido, Depression, Disorientation, Hallucinations, Hostility, Irritablity, Memory difficulties, Mood Swings, Obsessive thoughts, Physical abuse, Sexual abuse, Sleep disturbances, Suicidal ideation, Other Eyes: No Blurry vision, No Decreased vision, No Double vision, No Dry eyes, No Excessive tearing, No Eye Pain, No Itchy Eyes, No Loss of vision, No Photophobia , No Scotomata, No Uses contacts, No Uses glasses, No Other HEENT: No: Heacaches, Visual Changes, Hearing change, Nasal congestion, Nasal discharge, Oral lesions, Sinus pain, Sore Throat, Epistaxis, Sneezing, Snoring, Tinnitus, Vertigo, Vocal changes, Other ALLERGY AND IMMUNOLOGY: No: Hives, Insect Bite Sensitivity, Itchy/Watery Eyes, Nasal Congestion, Post Nasal Drip, Seasonal Allergies, Other Hematological and Lymphatic: No: Bleeding Problems, Blood Clots, Blood Transfusions, Brusing, Night Sweats, Pallor, Swollen Lymph Nodes, Other ENDOCRINE: No: Breast Changes, Galactorrhea, Hair Pattern Changes, Hot Flashes , Malaise/lethargy, Mood Swings, Palpitations, Polydipsia/polyuria, Skin Changes , Temperature Intolerance, Unexpected Weight Changes, Other Breast: No New/Changing Breast Lumps, No Nipple changes, No Nipple discharge, No Other Respiratory: No: Cough, Hemoptysis, Orthopnea, Pleuritic Pain, Shortness of breath, SOB with excertion, Sputum Changes, Stridor, Tachypnea, Wheezing, Other Cardiovascular: No Chest Pain, No Palpitations, No Orthopnea, No Paroxysmal Noc. Dyspnea, No Edema, No Lt Headedness, No Other Gastrointestinal: Yes Abdominal Pain Neurological: No Behavorial Changes, No Bowel/Bladder ControlChng, No Confusion , No Dizziness, No Gait Disturbance, No Headaches, No Impaired Coord/balance, No Memory Loss, No Numbness/Tingling, No Seizures, No Speech Problems, No Tremors, No Visual Changes, No Weakness, No Other Physical Exam General: Alert, Oriented X3, Cooperative HEENT: Atraumatic Lungs: Clear to auscultation Heart: S1S2 Breasts: Normal Abdomen: Normal bowel sounds, Soft, No masses Psych/Mental Status: Mental status NL Vitals Vitals Vital Signs Date Time Temp Pulse Resp B/P (MAP) Pulse Ox O2 Delivery O2 Flow Rate FiO2 07/16/18 06:27 98.3 51 14 98/62 (74) 97 98.3 07/16/18 01:30 Room Air Labs Labs Laboratory Tests Test 07/15/18 19:30 07/15/18 19:35 Urine Collection Type Clean catch Urine Color Red Urine Clarity Cloudy Urine pH 7.0 Urine Specific [place] 1.015 Urine Protein 30 mg/dL (NEG-TRACE) Urine Glucose (UA) Negative mg/dL (NEG) Urine Ketones (Stick) Negative mg/dL (NEG) Urine Blood Large (NEG) Urine Nitrite Negative (NEG) Urine Bilirubin Negative (NEG) Urine Urobilinogen Dipstick 0.2 mg/dL (0.2 mg/dL) Urine Leukocyte Esterase Large (NEG) Urine RBC Tntc /HPF (0-2) Urine WBC 1-4 /HPF (0-4) Urine Squamous Epithelial Cells Few /LPF Urine Bacteria Few /HPF (0-FEW) Urine Mucus Slight /LPF White Blood Count 11.4 x10^3/uL (4.0-11.0) Red Blood Count 4.79 x10^6/uL (3.50-5.40) Hemoglobin 13.6 g/dL (12.0-15.5) Hematocrit 40.3 % (36.0-47.0) Mean Corpuscular Volume 84 fL (79-100) Mean Corpuscular Hemoglobin 28 pg (25-35) Mean Corpuscular Hemoglobin Concent 34 g/dL (31-37) Red Cell Distribution Width 14.6 % (11.5-14.5) Platelet Count 346 x10^3/uL (140-400) Neutrophils (%) (Auto) 53 % (31-73) Lymphocytes (%) (Auto) 39 % (24-48) Monocytes (%) (Auto) 6 % (0-9) Eosinophils (%) (Auto) 2 % (0-3) Basophils (%) (Auto) 1 % (0-3) Neutrophils # (Auto) 6.0 x10^3uL (1.8-7.7) Lymphocytes # (Auto) 4.4 x10^3/uL (1.0-4.8) Monocytes # (Auto) 0.7 x10^3/uL (0.0-1.1) Eosinophils # (Auto) 0.2 x10^3/uL (0.0-0.7) Basophils # (Auto) 0.1 x10^3/uL (0.0-0.2) Sodium Level 140 mmol/L (136-145) Potassium Level 4.1 mmol/L (3.5-5.1) Chloride Level 104 mmol/L (98-107) Carbon Dioxide Level 26 mmol/L (21-32) Anion Gap 10 (6-14) Blood Urea Nitrogen 14 mg/dL (7-20) Creatinine 0.8 mg/dL (0.6-1.0) Estimated GFR (Cockcroft-Gault) 88.9 Glucose Level 92 mg/dL (70-99) Calcium Level 8.9 mg/dL (8.5-10.1) Laboratory Tests Test 07/15/18 19:30 07/15/18 19:35 Urine Collection Type Clean catch Urine Color Red Urine Clarity Cloudy Urine pH 7.0 Urine Specific [place] 1.015 Urine Protein 30 mg/dL (NEG-TRACE) Urine Glucose (UA) Negative mg/dL (NEG) Urine Ketones (Stick) Negative mg/dL (NEG) Urine Blood Large (NEG) Urine Nitrite Negative (NEG) Urine Bilirubin Negative (NEG) Urine Urobilinogen Dipstick 0.2 mg/dL (0.2 mg/dL) Urine Leukocyte Esterase Large (NEG) Urine RBC Tntc /HPF (0-2) Urine WBC 1-4 /HPF (0-4) Urine Squamous Epithelial Cells Few /LPF Urine Bacteria Few /HPF (0-FEW) Urine Mucus Slight /LPF White Blood Count 11.4 x10^3/uL (4.0-11.0) Red Blood Count 4.79 x10^6/uL (3.50-5.40) Hemoglobin 13.6 g/dL (12.0-15.5) Hematocrit 40.3 % (36.0-47.0) Mean Corpuscular Volume 84 fL (79-100) Mean Corpuscular Hemoglobin 28 pg (25-35) Mean Corpuscular Hemoglobin Concent 34 g/dL (31-37) Red Cell Distribution Width 14.6 % (11.5-14.5) Platelet Count 346 x10^3/uL (140-400) Neutrophils (%) (Auto) 53 % (31-73) Lymphocytes (%) (Auto) 39 % (24-48) Monocytes (%) (Auto) 6 % (0-9) Eosinophils (%) (Auto) 2 % (0-3) Basophils (%) (Auto) 1 % (0-3) Neutrophils # (Auto) 6.0 x10^3uL (1.8-7.7) Lymphocytes # (Auto) 4.4 x10^3/uL (1.0-4.8) Monocytes # (Auto) 0.7 x10^3/uL (0.0-1.1) Eosinophils # (Auto) 0.2 x10^3/uL (0.0-0.7) Basophils # (Auto) 0.1 x10^3/uL (0.0-0.2) Sodium Level 140 mmol/L (136-145) Potassium Level 4.1 mmol/L (3.5-5.1) Chloride Level 104 mmol/L (98-107) Carbon Dioxide Level 26 mmol/L (21-32) Anion Gap 10 (6-14) Blood Urea Nitrogen 14 mg/dL (7-20) Creatinine 0.8 mg/dL (0.6-1.0) Estimated GFR (Cockcroft-Gault) 88.9 Glucose Level 92 mg/dL (70-99) Calcium Level 8.9 mg/dL (8.5-10.1) VTE Prophylaxis Ordered VTE Prophylaxis Devices: No VTE Pharmacological Prophylaxi: No Assessment/Plan Assessment/Plan A: 2 wks s/p with vaginal bleeding P: Plan for suction D&C. WALTER AGUIAR Jr, MD Jul 16, 2018 08:16
[2018-07-16] MEDS ORDERED: VASOPRESSIN 20 UNIT/ML VIAL. ONE (11:00)
[2018-07-16] MEDS ORDERED: OXYTOCIN 10 UNIT/ML VIAL. ONE (11:00)
[2018-07-16] MEDS ORDERED: PROPOFOL 20 ML IV ONE (11:23)
[2018-07-16] MEDS ORDERED: fentaNYL PF VIAL 100 MCG/2 ML VIAL ONE (11:23)
[2018-07-16] MEDS ORDERED: MIDAZOLAM HCL/PF 2 MG/2 ML VIAL. ONE (11:23)
[2018-07-16] MEDS ORDERED: KETOROLAC 30 MG/ML INJ FOR OR. INJ ONE (11:23)
[2018-07-16] MEDS ORDERED: ONDANSETRON PF 4 MG/2 ML VIAL. ONE (11:23)
[2018-07-16] MEDS ORDERED: SEVOFLURANE 16 TO 30 MINUTES. IH ONE (12:22)
--- NOTE | 2018-07-16 12:40 | PDOC ---
BRIEF OPERATIVE NOTE Date: Jul 16, 2018 Pre-Op Diagnosis Retained Placenta products Post-Op Diagnosis Same Procedure Performed Suction D&C Surgeon Dr. Huffman Anesthesia Type: General Blood Loss 75 ml Specimens Obtained placental products Findings placenta products Complications none Operative Note see dictation WALTER HUFFMAN Jr, MD Jul 16, 2018 12:40
--- NOTE | 2018-07-16 12:41 | DISCH ---
DISCHARGE INSTRUCTIONS Condition on Discharge Condition on Discharge: Stable Activity After Discharge Activity Instructions for Disc: Activity as tolerated Lifting Instructions after Dis: No heavy lifting Exercise Instruction after Dis: Progress as tolerated Driving Instructions after Dis: Do not drive today Diet after Discharge Diet after Discharge: Regular Diet Texture: Regular Wound Incision Care Wound/Incision Care: No wound care needed Checks after Discharge Checks after discharge: Check your Temp as needed Contacting the [facility] after DC Call your doctor for: If your condition worsens Follow-Up Follow up with: Dr. Huffman in 1 wk Treatment/Equipment after DC Adaptive Equipment Issued: None WALTER HUFFMAN Jr, MD Jul 16, 2018 12:41
--- NOTE | 2018-07-16 13:04 | OP ---
DATE OF SURGERY: 07/16/2018 PREOPERATIVE DIAGNOSES: Retained placental products. POSTOPERATIVE DIAGNOSES: Retained placental products. PROCEDURE: Suction D and C. SURGEON: Walter Huffman MD ANESTHESIA: GETA. ESTIMATED BLOOD LOSS: 75 mL. COMPLICATIONS: None. FINDINGS: Placental products. SUMMARY: A 22-year-old female who delivered 2 weeks ago and then presented to the Emergency Department with heavy bleeding, passage of large tissue and blood clots. The patient had a pelvic sonogram that indicated retained placental products. The patient was counseled on need for a suction D and C, the risks, benefits and expectations and voiced clear understanding to proceed. DESCRIPTION OF PROCEDURE: The patient was taken to the surgery suite and placed in dorsal lithotomy position. She was prepped with Betadine solution and draped in sterile fashion. After adequate anesthesia, weighted speculum and curved Raul placed vaginally. Anterior lip of the cervix grasped with single tooth tenaculum. Cervix was dilated with the [place] dilators. An 8 mm curved tip suction curette was utilized with a maximum pressure of 60 cm of mercury. The suction curette was rotated in circumferential manner removing blood products and placental products. Sharp curettage took place until a fine gritty surface was palpated circumferentially. Suction curette was passed once again removing additional placental products and blood products. The uterus was then palpated firm. Single tooth tenaculum and weighted speculum and curved Raul were removed. The patient tolerated the procedure well and was taken to recovery room in stable condition. Sponge and needle count correct x 3. WALTER HUFFMAN MD DR: SAQIB/ian JOB#: [id number] / [id number]
== END 2018-07-16 16:28 | disposition home or self-care (01) | DRG 769 ==
LOC: ER 18:58 → 3 NORTH 23:51
PROVIDERS: ADMIT Obstetrics & Gynecology; ATTEND Obstetrics & Gynecology
PROC: 10D17ZZ Extraction of Products of Conception, Retained, Via Natural or Artificial Opening (ICD-10-PCS; principal; 2018-07-16 11:30)
DX: O72.2 Delayed and secondary postpartum hemorrhage (principal)
CPT/HCPCS: 36415; 76856; 80048; 81001; 85025; 87086; 96361; 96374; J0690; J1885; J2250; J2405; J2590; J2704; J3010; J3490; J7030; 99285-25